=== PATIENT | female | born 1990 | race Two or more races ===

== ENCOUNTER 2019-04-25 23:21 | Observation (INO) | payer OTHER ==
[~2019-04-25] VITALS: Ht 167.6 cm; Wt 72.0 kg
[2019-04-25] MEDS ORDERED: ONDANSETRON 2MG/ML, 2ML ONE (23:49)
[2019-04-25] MEDS ORDERED: MORPHINE SULFATE 4 MG/ML, 1ML ONE (23:49)
[2019-04-26] MEDS ORDERED: ONDANSETRON 2MG/ML, 2ML IVPush ONE
[2019-04-26] MEDS ORDERED: MORPHINE SULFATE 4 MG/ML, 1ML IVPush PRN
[2019-04-26 00:15] LABS: MEAN CORPUSCULAR HEMOGLOBIN 31.2 pg (27.0-34.8); MEAN CORPUSCULAR HGB CONC 33.4 g/dL (32.4-35.8); MEAN CORPUSCULAR VOLUME 93.6 fL (80-100); MEAN PLATELET VOLUME 7.8 fL (7.4-10.4); PLATELET COUNT 306 x10^3/uL (130-400); RED BLOOD COUNT 4.31 x10^6/uL (3.82-5.3); RED CELL DISTRIBUTION WIDTH 12.3 % (9.6-15.2)
--- NOTE | 2019-04-26 00:20 | NUR ---
PELVIC COMPLETED AT BS BY . PT TOLERATED WELL. AWARE OF PENDING LABS. WILL CTM.
[2019-04-26 00:28] LABS: ALANINE AMINOTRANSFERASE 23 U/L (12-78); ALBUMIN 3.5 g/dL (3.4-5.0); ANION GAP 7 mmol/L (5-15); CHLORIDE 108 mmol/L (98-107)
--- NOTE | 2019-04-26 00:40 | NUR ---
TO U/S VIA CART C
[2019-04-26 00:42] LABS: MD SCAN
[2019-04-26 00:45] LABS: ALKALINE PHOSPHATASE 40 U/L (45-117); BILIRUBIN,TOTAL 0.4 mg/dL (0.2-1.0); TOTAL PROTEIN 7.5 g/dL (6.4-8.2)
--- NOTE | 2019-04-26 01:01 | NUR ---
BACK FROM US
--- NOTE | 2019-04-26 02:05 | NUR ---
UPDATED C PLAN FOR OB TO SEE PT. DENIES ANY NEEDS. AMBULATORY TO RESTROOM C C STEADY GAIT. CLEANING SUPPLIES & PANTIES & PAD PROVIDED.
--- NOTE | 2019-04-26 02:36 | NUR ---
SPECIAL EDUCATION INCLUSION TEACHER/OB AT BS
[2019-04-26] MEDS ORDERED: MISOPROSTOL 200 MCG TABLET PR ONE (03:00)
[2019-04-26] MEDS ORDERED: OXYcodone 5 MG/5 ML ORAL.SOL UDC PO PRN ×2 (03:00)
[2019-04-26] MEDS ORDERED: OXYcodone IR 5MG TABLET ONE (03:21)
[2019-04-26] MEDS: OXYcodone IR 5MG TABLET PO PRN ×2 (03:29→07:49)
[2019-04-26] MEDS ORDERED: PLEASE ENTER ALLERGIES MC SCH (03:30)
[2019-04-26 03:44] VITALS: BP 111/74
[2019-04-26 07:52] VITALS: BP 105/71
[2019-04-26 08:33] VITALS: BP 98/65
[2019-04-26] MEDS ORDERED: DOXY100T PO (08:49)
[2019-04-26] MEDS ORDERED: OXYC-302 PO (08:50)
== END 2019-04-26 09:51 | disposition home or self-care (01) ==
LOC: ED 04-26 03:36 → INTOOBSV 04-26 03:42 → EDIP 04-26 03:42 → 3N 04-26 03:45
PROVIDERS: ADMIT Obstetrics & Gynecology Maternal & Fetal Medicine; ATTEND Obstetrics & Gynecology Maternal & Fetal Medicine
DX: O03.4 Incomplete spontaneous abortion without complication (principal); R10.2 Pelvic and perineal pain
CPT/HCPCS: 36415; 76801; 80053; 84702; 85025; 96374; 96375; 99284; G0378; J2270; J2405